=== PATIENT | female | born 1995 | race Caucasian/White ===

== ENCOUNTER 2016-10-29 10:43 | Inpatient (IN) | payer OTHER ==
--- NOTE | 2016-08-14 00:30 | PN ---
Date/Time of Note Date/Time of Note DATE: 08/14/16 TIME: 00:11 OB Subjective Subjective Subjective 20 Year-old G1 with SIUP at 29 weeks presents with a chief complaint of abdominal cramp. She has been receiving her care with Dr. Alexis. She states good movement. She denies nausea, vomiting, shortness of breath, chest pain, headache, visual changes, vaginal bleeding or LOF. OB Objective Objective Objective General: Patient appears well, alert and oriented, NAD, appropriate mood and affect ABD: gravid, soft, non-tender. Back: No CVA tenderness (B/L) LE: No clubbing, cyanosis, edema, thigh or calf tenderness bilaterally FHT: 135 bpm , moderate variability with acceleration, no deceleration-category I Contractions: Irreg OB Assessment/Plan Other plan: 20 Year-old G1 with SIUP at 29 weeks presents with abdominal cramp and occasional ucs. She received PO fluid. U/A was nml. OB us performed, CL: 5/1 cm. The ucs resolved with PO fluid. - FHR: No sign of metabolic acidosis- Category I - Continuous EFM, toco - Reactive NST - Symptoms and sign of labor, preeclampsia, kick count discussed with patient, she voiced understanding. All of her questions answered. - Patient was discharged home in stable condition with the appropriate discharge instructions provided. I would like patient to have close follow-up with her primary physician or outpatient clinic in 1-2 days or return to the ER for worsening symptoms or any other urgent concerns. ASHIA STRICKLAND Aug 14, 2016 00:22
[~2016-10-29] VITALS: Ht 162.6 cm; Wt 104.5 kg
[~2016-10-29 10:43] MED LIST: FER325 PO; PRENAT PO
[2016-11-02 12:21] VITALS: BP 127/58; PULSE 77; RESP 16; Ht 162.6 cm; Wt 104.5 kg
[2016-11-02] MEDS ORDERED: OXYTOCIN 30 UNITS/LR 500 ML IV SCH (12:30)
[2016-11-02] MEDS ORDERED: MISOPROSTOL 200 MCG TAB PR PRN (12:30)
[2016-11-02] MEDS ORDERED: IBUPROFEN 600 MG TAB PO PRN (12:30)
[2016-11-02] MEDS ORDERED: METHYLERGONOVINE 0.2 MG INJ IM PRN (12:30)
[2016-11-02] MEDS ORDERED: LIDOCAINE 1% (MPF) 30 ML INJ INJ PRN (12:30)
[2016-11-02] MEDS ORDERED: CARBOPROST 250 MCG INJ IM PRN (12:30)
[2016-11-02] MEDS ORDERED: DINOPROSTONE 10 MG VAG SUPP VAG ONE (12:30)
[2016-11-02] MEDS ORDERED: MINERAL OIL LIGHT 10 ML VIAL TOP ONE (12:30)
[2016-11-02] MEDS ORDERED: OXYTOCIN 30 UNITS/LR 500 ML IV PRN (12:30)
[2016-11-02] MEDS: LACTATED RINGER'S 1,000 ML IV SCH ×4 (12:41→23:23)
[2016-11-02 13:12] LABS: ADD SCAN DIFF NO
[2016-11-02 13:25] LABS: BASOPHILS % 0.2 % (0.0-2.0); EOSINOPHILS # 0.1 10^3/ul (0.0-0.5); EOSINOPHILS % 1.4 % (0.0-7.0); HEMATOCRIT 31.9 % (37.0-47.0); LYMPHOCYTES # 1.5 10^3/ul (0.8-2.9); LYMPHOCYTES % 17.3 % (15.0-51.0); MEAN CORPUSCULAR HEMOGLOBIN 25.4 pg (29.0-33.0); MEAN CORPUSCULAR HGB CONC 31.3 g/dl (32.0-37.0); MEAN PLATELET VOLUME 10.6 fl (7.4-10.4); MONOCYTE # 0.5 10^3/ul (0.3-0.9); MONOCYTES % 6.2 % (0.0-11.0); NEUTROPHIL # 6.4 10^3/ul (1.6-7.5); NEUTROPHILS % 74.4 % (39.0-77.0); PLATELET COUNT 253 10^3/UL (140-415); RED BLOOD COUNT 3.94 10^6/ul (4.20-5.40); WHITE BLOOD COUNT 8.6 10^3/ul (4.8-10.8)
[2016-11-02 13:30] LABS: INR 0.96; PARTIAL THROMBOPLASTIN TIME 28.2 Sec (25.0-35.0); PROTIME 12.8 Sec (12.2-14.2)
[2016-11-02] MEDS ORDERED: BUTORPHANOL 2 MG INJ IV PRN (17:30)
[2016-11-02] MEDS ORDERED: BUTORPHANOL 2 MG INJ ONE (17:32)
[2016-11-02] MEDS: LACTATED RINGER'S 1,000 ML IV PRN ×2 (20:22→21:03)
[2016-11-02] MEDS ORDERED: FENTAnyl 2MCG/ML-ROPIV 0.2% 100 ML ONE (20:47)
[2016-11-02] MEDS ORDERED: TERBUTALINE 1 MG/ML INJ SC STA (21:14)
[2016-11-02] MEDS ORDERED: NALOXONE (0.4 MG/ML) INJ IV PRN (22:00)
[2016-11-02] MEDS ORDERED: TERBUTALINE 1 MG/ML INJ SC ONE (23:30)
[2016-11-03] VITALS (7 sets, daily range): BP systolic 110–161; BP diastolic 64–95; PULSE 83–110; RESP 18–20
[2016-11-03] MEDS: FENTAnyl 2MCG/ML-ROPIV 0.2% 100 ML BAG EPI SCH ×2 (02:22→07:06)
[2016-11-03] MEDS: LACTATED RINGER'S 1,000 ML IV SCH ×3 (04:08→12:45)
[2016-11-03] MEDS ORDERED: ACETAMINOPHEN 500 MG TAB PO STA (07:33)
[2016-11-03] MEDS ORDERED: ONDANSETRON 4 MG INJ ONE (07:59)
[2016-11-03] MEDS ORDERED: AMPICILLIN 2 GM/NS (PMX) 100 ML IV ONE (08:00)
[2016-11-03] MEDS ORDERED: ONDANSETRON 4 MG INJ IV STA (08:03)
[2016-11-03] MEDS: OXYTOCIN 30 UNITS/LR 500 ML IV SCH ×4 (09:17→23:57)
--- NOTE | 2016-11-03 10:57 | HP ---
Date/Time of Note Date/Time of Note DATE: 11/03/16 TIME: 10:28 OB - History Hx of Present Free Text/Dictation This is a 20 years old female 1 para 0 EDC of October 29, 2016 admitted to [facility] at 40 weeks and 5 for induction of labor due to low BENJAMÍN 7.4, mild PIH one episode of blood pressure 160/100 the following blood pressure were mostly within normal range for that reason she was placed on magnesium sulfate and continue induction of labor This patient has been under the care of the [facility] , she is Rh- had received RH GMon August 08, due to premature rupture of membrane on November 02, 2016 at 1726 she was covered with antibiotic, pelvic examination on admission cervix 3 cm dilated 90% effaced vertex at -2 station category 1 heart rate occasional variable deceleration Chief Complaint: Induction of labor at 40 weeks and 5 day, low BENJAMÍN Estimated Due Date: Oct 29, 2016 : 1 Para: 0 Care: Good Care Ultrasounds: Normal mid trimester US Obstetrical Complications: Gestational Hypertension Medical Complications: None Past Family/Social History * Past Medical, Surgical, Family and Obstetric Histories reviewed from chart. Blood Type: O- Rubella: immune RPR/VDRL: Negative GBS Status: Negative OB Admission Exam Vital Signs Vital Signs Vital Signs Date Time Temp Pulse Resp B/P Pulse Ox O2 Delivery O2 Flow Rate FiO2 11/02/16 12:21 97.9 77 16 127/58 Room Air Physical Exam HEENT: WNL Heart: Rhythm Normal Lungs: Clear, Equal Abdomen: WNL Extremities: Normal Reflexes: Normal Cervical Dilatation: 3cm Effacement: Other (90%) Station: -2 Membranes: Ruptured Amniotic Fluid: Clear Heart Rate: 130's Accelerations: Accelerations Present Decelerations: Variable Decelerations Varibility: Moderate Contractions on Admission: >10 Minutes Apart Intensity: Mild Last 72 hours Lab Results CBC & BMP 11/02/16 12:42 OB Assessment/Plan Reason for admission: other (40 weeks 5 days low BENJAMÍN, moderate.) Plan: Induction LISA DICK MD Nov 03, 2016 10:47
--- NOTE | 2016-11-03 11:08 | LDN ---
Date/Time of Note Date/Time of Note DATE: 11/03/16 TIME: 10:59 Delivery Summary Normal spontaneous vaginal delivery of a baby girl from OA shoulders delivered without any difficulties rest of the baby's body follow cord clamped after stopped pulsation placenta spontaneous expulsion inspected complete blood loss 250 Weeks of Gestation 40 weeks 5 days Placenta Delivered: Spontaneously Episiotomy: No Perineal laceration: 1 Laceration repair: First-degree perineal laceration and left paraurethral laceration repaired with 3-0 chromic catgut Anesthesia type: Epidural Estimated blood loss: 250 Sponge & Needle done & correct: Yes All needle counts correct: Yes Any foreign bodies felt in the: No Problems: LISA DICK MD Nov 03, 2016 11:08
[2016-11-03] MEDS ORDERED: DIBUCAINE 1% 30 GM OINT PR PRN (11:30)
[2016-11-03] MEDS ORDERED: BENZOCAINE 20% 56 ML SPRAY TOP PRN (11:30)
[2016-11-03] MEDS ORDERED: OXYCODONE/ASPIRIN (4.88/325) TAB PO PRN ×2 (11:30)
[2016-11-03] MEDS ORDERED: ONDANSETRON 4 MG INJ IV PRN (11:30)
[2016-11-03] MEDS ORDERED: ACETAMINOPHEN/CODEINE #3 TAB PO PRN ×2 (11:30)
[2016-11-03] MEDS ORDERED: LANOLIN 7 GM TUBE TOP PRN (11:30)
[2016-11-03] MEDS ORDERED: WITCH HAZEL/GLYCERIN PAD PR PRN (11:30)
[2016-11-03] MEDS ORDERED: ACETAMINOPHEN 325 MG TAB PO PRN (11:30)
[2016-11-03] MEDS ORDERED: AMPICILLIN 1 GM/NS (PMX) 50 ML IV SCH (12:00)
[2016-11-03] MEDS: IBUPROFEN 600 MG TAB PO SCH ×3 (12:00→23:54)
[2016-11-03] MEDS ORDERED: CA GLUCONATE (GM) 10% 10ML INJ IV PRN (13:00)
[2016-11-03] MEDS ORDERED: MAGNESIUM SULFATE 4 GM/100 ML 100 ML IV SCH (13:00)
[2016-11-03] MEDS ORDERED: BUTORPHANOL 2 MG INJ IV ONE (13:30)
[2016-11-03] MEDS ORDERED: KETOROLAC 30 MG INJ IM STA (13:33)
[2016-11-03] MEDS: MAGNESIUM SULFATE 20 GM/500 ML 500 ML IV SCH (13:35)
[2016-11-03] MEDS: SENNA/DOCUSATE NA (8.6MG/50MG) TAB PO SCH (23:53)
[2016-11-04] VITALS (15 sets, daily range): BP systolic 100–136; BP diastolic 55–82; PULSE 74–106; RESP 17–20
[2016-11-04] MEDS: LACTATED RINGER'S 1,000 ML IV SCH (00:01)
[2016-11-04] MEDS: IBUPROFEN 600 MG TAB PO SCH ×4 (05:37→23:35)
[2016-11-04 08:28] LABS: ADD SCAN DIFF NO
[2016-11-04 08:40] LABS: BASOPHILS % 0.2 % (0.0-2.0); EOSINOPHILS # 0.1 10^3/ul (0.0-0.5); EOSINOPHILS % 0.8 % (0.0-7.0); HEMATOCRIT 27.3 % (37.0-47.0); HEMOGLOBIN 8.7 g/dl (12.0-16.0); LYMPHOCYTES # 1.1 10^3/ul (0.8-2.9); LYMPHOCYTES % 8.6 % (15.0-51.0); MEAN CORPUSCULAR HEMOGLOBIN 25.7 pg (29.0-33.0); MEAN CORPUSCULAR HGB CONC 31.9 g/dl (32.0-37.0); MEAN CORPUSCULAR VOLUME 80.5 fl (82.0-101.0); MEAN PLATELET VOLUME 10.6 fl (7.4-10.4); MONOCYTE # 0.7 10^3/ul (0.3-0.9); MONOCYTES % 4.9 % (0.0-11.0); NEUTROPHIL # 11.2 10^3/ul (1.6-7.5); PLATELET COUNT 195 10^3/UL (140-415); RED BLOOD COUNT 3.39 10^6/ul (4.20-5.40); RED CELL DISTRIBUTION WIDTH 15.4 % (11.5-14.5); WHITE BLOOD COUNT 13.2 10^3/ul (4.8-10.8)
[2016-11-04] MEDS: SENNA/DOCUSATE NA (8.6MG/50MG) TAB PO SCH ×2 (08:51→20:44)
[2016-11-04] MEDS: MAGNESIUM SULFATE 20 GM/500 ML 500 ML IV SCH ×2 (09:48)
--- NOTE | 2016-11-04 17:06 | QN ---
Documentation Comment ppd1 pt doing well vss exam wnl a/p ppd1 continue care ORTIZ LUCAS MD Nov 04, 2016 17:06
[2016-11-05 04:00] VITALS: BP 110/61; PULSE 89; RESP 18
[2016-11-05] MEDS: IBUPROFEN 600 MG TAB PO SCH ×2 (05:43→11:52)
[2016-11-05] MEDS ORDERED: MEASLES,MUMPS,RUBELLA VACCINE INJ SC* ONE (09:00)
[2016-11-05 10:00] VITALS: BP 126/83; PULSE 78; RESP 18
[2016-11-05] MEDS: SENNA/DOCUSATE NA (8.6MG/50MG) TAB PO SCH (10:53)
[2016-11-05] MEDS ORDERED: LABETALOL 100 MG TAB PO SCH (11:30)
--- NOTE | 2016-11-05 11:43 | DS ---
Date/Time of Note Date/Time of Note DATE: 11/05/16 TIME: 11:42 Obstetrical Discharge Record Final Diagnosis Final Diagnosis: Term delivered Vaginal Delivery Obstetrical Delivery: Spontaneous Complications Preg induced Hypertension Tocolytics: Magnesium Sulfate Condition on Discharge Physical Assessment Voiding: Yes Bowel Movement: Yes Breast: Soft, non-tender Fundus: Firm Calf Tenderness: No Patient Condition: Stable ORTIZ LUCAS MD Nov 05, 2016 11:43
--- NOTE | 2016-11-05 19:26 | RADRPT ---
Vent Rate: 81 bpm RR Interval: 0 msec TX Interval: 118 msec QRS Duration: 80 msec QT Interval: 376 msec QTC Interval: 436 msec P-R-T Jackson: 8 - 41 - 36 degrees Normal sinus rhythm Normal ECG Electronically Signed By: Baldemar Rose [id number]
--- NOTE | 2016-11-05 21:37 | NSTRPT ---
NST Information Datetime Report Generated by CPN: 11/05/2016 21:37 Datetime: 11/02/2016 09:16 NST Information EGA: 40.4 Test Number: 1 Time on Monitor: 11/02/2016 09:36 Time off Monitor: 11/02/2016 10:17 NST Duration (Min): 41 Reason for NST: Other Reason for NST Other: Post Dates Test and Monitor Explained: Monitor Explained; Test Explained; Verbalized Understanding; Breastfee ding Info Given Pulse: 85 Resp: 18 SBP: 107 DBP: 59 Test Evaluation NST Interventions: None Patient States Movement: Present Contraction Frequency: X3(mild 2/10) FHR Baseline : 125 Variability: Moderate 6-25bpm Accelerations: 15X15 FHR Category: Category I NST Results: Reactive Comments: To u/s, BENJAMÍN 7.1, Cephalic 1005-Report to Dr Putnam, recommends delivery. 1014-Dr Alexis paged, Report to Dr Alexis, inc BENJAMÍN , NST, Dr Putnam's recommendation. Order received to admit pt to [facility]. Report called to VINAY Carmona. L_Magy . 1021-POC explained to pt, states understanding, directed to go straight to hosp and not go home o r other locations. States understanding and denies further questions at this time. Electronically Signed By E-Signature: with User ID: [id number]
== END 2016-11-05 14:55 | disposition home or self-care (01) | DRG 775 ==
LOC: EDSTATUS 10:43 → L-D 11-02 12:03 → PP1 11-03 11:14
PROVIDERS: ADMIT Obstetrics & Gynecology; ATTEND Obstetrics & Gynecology
PROC: 10E0XZZ Delivery of Products of Conception, External Approach (ICD-10-PCS; principal; 2016-11-03)
PROC: 0HQ9XZZ Repair Perineum Skin, External Approach (ICD-10-PCS; 2016-11-03)
PROC: 3E033VJ Introduction of Other Hormone into Peripheral Vein, Percutaneous Approach (ICD-10-PCS; 2016-11-03)
DX: O48.0 Post-term pregnancy (principal); O70.0 First degree perineal laceration during delivery; O13.4 Gestational [pregnancy-induced] hypertension without significant proteinuria, complicating childbirth; Z3A.40 40 weeks gestation of pregnancy; Z37.0 Single live birth
CPT/HCPCS: 62319; 83735; 85025; 85610; 85730; 86592; 86900; 86901; 87340; 93005; A4310; J0290; J0595; J1885; J2405; J2590; J3010; J3105; J3475; J7120

== ENCOUNTER 2017-06-19 00:06 | Emergency (ER) | END 2017-06-19 05:09 | disposition home or self-care (01) ==